=== PATIENT | male | born 1975 | race African-American/Black ===

== ENCOUNTER 2018-07-24 02:08 | Emergency (ER) | payer SELFPAY ==
[2018-07-24 02:55] LABS: Absolute Lymphocytes (CBC) 2.3 K/uL (0.7-4.9); Absolute Monocytes 0.6 K/uL (0.1-1.3); Basophils % 0.6 % (0-1.3); Eosinophils % 2.5 % (0-4.4); Lymphocytes % 45.1 % (15.3-44.8); MCH 28.9 pg (27.0-35.0); MPV 8.9 fL (7.6-11.3); Monocytes % 11.6 % (3.3-12.3); RBC Red Blood Cell Count 4.24 M/uL (4.33-5.43)
[2018-07-24] MEDS ORDERED: ONDANSETRON 4 MG/2 ML VIAL ONE (02:57)
[2018-07-24] MEDS ORDERED: NA CHLORIDE 0.9% 1,000 ML ONE (02:57)
[2018-07-24] MEDS ORDERED: KETOROLAC 30 MG/ML INJ ONE (02:57)
[2018-07-24 03:09] LABS: Albumin 3.7 g/dL (3.4-5.0); Bilirubin Direct 0.1 mg/dL (0-0.2); Bilirubin Total 0.3 mg/dL (0.2-1.0); Potassium 3.9 mmol/L (3.5-5.1); Protein, Total 7.5 g/dL (6.4-8.2)
[2018-07-24 03:21] LABS: Urine Blood TRACE (NEG); Urine Glucose NEGATIVE (NEG); Urine Protein NEGATIVE (NEG)
--- NOTE | 2018-07-24 03:56 | ER ---
Nurse's Notes [facility] Name: Kevan Lucero Jr Age: 42 yrs Sex: Male : 1975 Arrival Date: 07/24/2018 Time: 02:11 Bed 18 Private MD: Diagnosis: Low back pain;Anemia, unspecified;Unspecified kidney failure Presentation: 07/24 02:25 Presenting complaint: Patient states: I noticed my back was starting to hurt while I jb4 was watching the football game yesterday (07/23/18) and so I took 2 Tylenol 500 mg. When I woke up around 0130 I was hurting even worse when I sat up and went to go to the restroom. I took another 2 of Tylenol 500 mg. Transition of care: patient was not received from another setting of care. Onset of symptoms was July 24, 2018. Risk Assessment: Do you want to hurt yourself or someone else? Patient reports no desire to harm self or others. Initial Sepsis Screen: Does the patient meet any 2 criteria? No. Patient's initial sepsis screen is negative. Does the patient have a suspected source of infection? No. Patient's initial sepsis screen is negative. Care prior to arrival: None. 02:25 Method Of Arrival: Ambulatory jb4 02:25 Acuity: FILIBERTO 4 jb4 Triage Assessment: :28 General: Appears in no apparent distress. uncomfortable, Behavior is calm, cooperative, jb4 appropriate for age. Pain: Complains of pain in right low back Pain does not radiate. Pain currently is 10 out of 10 on a pain scale. Quality of pain is described as throbbing. EENT: No signs and/or symptoms were reported regarding the EENT system. Neuro: Level of Consciousness is awake, alert, obeys commands, Oriented to person, place, time, situation. Cardiovascular: Patient's skin is warm and dry. Respiratory: Airway is patent Respiratory effort is even, unlabored, Respiratory pattern is regular, symmetrical. GI: No signs and/or symptoms were reported involving the gastrointestinal system. : No signs and/or symptoms were reported regarding the genitourinary system. Derm: Skin is intact, Skin is pink, warm \T\ dry. Musculoskeletal: Circulation, motion, and sensation intact. Historical: - Allergies: 02:28 No Known Allergies; jb4 - Home Meds: 02:28 None [Active]; jb4 - PMHx: 02:28 None; jb4 - PSHx: 02:28 None; jb4 - Immunization history:: Adult Immunizations up to date, Flu vaccine is up to date. - Social history:: Smoking status: Patient/guardian denies using tobacco, Patient/guardian denies using alcohol. - Ebola Screening: : No symptoms or risks identified at this time. - Family history:: not pertinent. Screenin:30 Abuse screen: Denies threats or abuse. Nutritional screening: No deficits noted. jb4 Tuberculosis screening: No symptoms or risk factors identified. Fall Risk None identified. Assessment: 02:30 General: see triage assessment.. Neuro: Level of Consciousness is awake, alert, obeys jb4 commands, Oriented to person, place, time, situation. 03:00 Reassessment: Pt to CT via wheelchair. jb4 03:28 Reassessment: Patient appears in no apparent distress at this time. Patient and/or jb4 family updated on plan of care and expected duration. Pain level reassessed. Patient is alert, oriented x 3, equal unlabored respirations, skin warm/dry/pink. 04:14 Reassessment: Patient appears in no apparent distress at this time. Patient and/or jb4 family updated on plan of care and expected duration. Pain level reassessed. Patient is alert, oriented x 3, equal unlabored respirations, skin warm/dry/pink. Vital Signs: 02:28 BP 133 / 94; Pulse 67; Resp 18; Temp 98.3; Pulse Ox 98% on R/A; Weight 95.25 kg; Height jb4 6 ft. 3 in. (190.50 cm); Pain 10/10; 03:28 BP 115 / 84; Pulse 67; Resp 18; Pulse Ox 97% on R/A; jb4 04:14 BP 118 / 81; Pulse 86; Resp 18; Pulse Ox 95% on R/A; jb4 02:28 Body Mass Index 26.25 (95.25 kg, 190.50 cm) jb4 ED Course: 02:11 Patient arrived in ED. es 02:16 Martin Choudhury RN is Primary Nurse. jb4 02:26 Alen García MD is Attending Physician. [facility] 02:27 Triage completed. jb4 02:28 Arm band placed on right wrist. jb4 02:28 Patient has correct armband on for positive identification. Bed in low position. Call jb4 light in reach. Side rails up X 1. Pulse ox on. NIBP on. 02:28 Initial lab(s) drawn, by me, sent to lab. Inserted saline lock: 20 gauge in right jb4 antecubital area, using aseptic technique. Blood collected. 02:56 Radiology exam delayed due to Patient receiving pain medications at this time. kw1 03:[address] via wheelchair. kw1 03:08 CT completed. Patient tolerated procedure well. Patient moved back from CT. kw1 03:09 CT Stone Protocol In Process Unspecified. EDMS 04:14 IV discontinued, intact, bleeding controlled. jb4 04:14 No provider procedures requiring assistance completed. jb4 Administered Medications: 02:56 Drug: Zofran 4 mg Route: IVP; Site: right antecubital; jb4 03:29 Follow up: Response: No adverse reaction; Nausea is decreased jb4 02:57 Drug: NS 0.9% 1000 ml Route: IV; Rate: 1 bolus; Site: right antecubital; jb4 04:00 Follow up: Response: No adverse reaction; IV Status: Completed infusion jb4 02:59 Drug: TORadol 30 mg Route: IVP; Site: right antecubital; jb4 03:29 Follow up: Response: No adverse reaction; Pain is decreased jb4 Outcome: 03:55 Discharge ordered by . brenda 04:14 Discharged to home ambulatory. jb4 04:14 Condition: stable 04:14 Discharge instructions given to patient, Instructed on discharge instructions, follow up and referral plans. medication usage, Demonstrated understanding of instructions, follow-up care, medications, Prescriptions given X 4. 04:16 Patient left the ED. jb4 Signatures: Dispatcher [employer] Alen Briscoe MD MD cha Salyer, Edna es Bryson, James RN RN jb4 Mecca Holt kw1
--- NOTE | 2018-07-24 03:56 | EDPHYS ---
Physician Documentation [facility] Name: Kevan Lucero Jr Age: 42 yrs Sex: Male : 1975 Arrival Date: 07/24/2018 Time: 02:11 Bed 18 Private MD: ED Physician Alen García HPI: 07/24 02:42 This 42 yrs old Black Male presents to ER via Ambulatory with complaints of Back Pain. [facility] 02:42 The patient presents with pain that is acute. The symptoms are located in the lumbar brenda area, right mid back and right low back. Onset: The symptoms/episode began/occurred just prior to arrival. The pain does not radiate. Associated signs and symptoms: The patient has no apparent associated signs or symptoms. Modifying factors: The patient symptoms are alleviated by nothing, the patient symptoms are aggravated by any movement. Severity of symptoms: At their worst the symptoms were moderate, in the emergency department the symptoms are unchanged. The patient has not experienced similar symptoms in the past. Historical: - Allergies: 02:28 No Known Allergies; jb4 - Home Meds: 02:28 None [Active]; jb4 - PMHx: 02:28 None; jb4 - PSHx: 02:28 None; jb4 - Immunization history:: Adult Immunizations up to date, Flu vaccine is up to date. - Social history:: Smoking status: Patient/guardian denies using tobacco, Patient/guardian denies using alcohol. - Ebola Screening: : No symptoms or risks identified at this time. - Family history:: not pertinent. ROS: 02:42 Constitutional: Negative for fever, chills, and weight loss, Eyes: Negative for injury, brenda pain, redness, and discharge, ENT: Negative for injury, pain, and discharge, Neck: Negative for injury, pain, and swelling, Cardiovascular: Negative for chest pain, palpitations, and edema, Respiratory: Negative for shortness of breath, cough, wheezing, and pleuritic chest pain, Abdomen/GI: Negative for abdominal pain, nausea, vomiting, diarrhea, and constipation, : Negative for injury, bleeding, discharge, and swelling, MS/Extremity: Negative for injury and deformity, Skin: Negative for injury, rash, and discoloration, Neuro: Negative for headache, weakness, numbness, tingling, and seizure, Psych: Negative for depression, anxiety, suicide ideation, homicidal ideation, and hallucinations, Allergy/Immunology: Negative for hives, rash, and allergies, Endocrine: Negative for neck swelling, polydipsia, polyuria, polyphagia, and marked weight changes, Hematologic/Lymphatic: Negative for swollen nodes, abnormal bleeding, and unusual bruising. 02:42 Back: Positive for decreased range of motion, pain at rest, flank pain, on the right. Exam: 02:42 Constitutional: This is a well developed, well nourished patient who is awake, alert, brenda and in no acute distress. Head/Face: Normocephalic, atraumatic. Eyes: Pupils equal round and reactive to light, extra-ocular motions intact. Lids and lashes normal. Conjunctiva and sclera are non-icteric and not injected. Cornea within normal limits. Periorbital areas with no swelling, redness, or edema. ENT: Nares patent. No nasal discharge, no septal abnormalities noted. Tympanic membranes are normal and external auditory canals are clear. Oropharynx with no redness, swelling, or masses, exudates, or evidence of obstruction, uvula midline. Mucous membranes moist. Neck: Trachea midline, no thyromegaly or masses palpated, and no cervical lymphadenopathy. Supple, full range of motion without nuchal rigidity, or vertebral point tenderness. No Meningismus. Chest/axilla: Normal chest wall appearance and motion. Nontender with no deformity. No lesions are appreciated. Cardiovascular: Regular rate and rhythm with a normal S1 and S2. No gallops, murmurs, or rubs. Normal PMI, no JVD. No pulse deficits. Respiratory: Lungs have equal breath sounds bilaterally, clear to auscultation and percussion. No rales, rhonchi or wheezes noted. No increased work of breathing, no retractions or nasal flaring. Abdomen/GI: Soft, non-tender, with normal bowel sounds. No distension or tympany. No guarding or rebound. No evidence of tenderness throughout. Male : Normal genitalia with no discharge or lesions. Skin: Warm, dry with normal turgor. Normal color with no rashes, no lesions, and no evidence of cellulitis. MS/ Extremity: Pulses equal, no cyanosis. Neurovascular intact. Full, normal range of motion. Neuro: Awake and alert, GCS 15, oriented to person, place, time, and situation. Cranial nerves II-XII grossly intact. Motor strength 5/5 in all extremities. Sensory grossly intact. Cerebellar exam normal. Normal gait. Psych: Awake, alert, with orientation to person, place and time. Behavior, mood, and affect are within normal limits. 02:42 Back: ROM is painful, normal spinal alignment noted, CVA tenderness, that is mild, muscle spasm, is appreciated in the right mid back and right low back. Vital Signs: 02:28 BP 133 / 94; Pulse 67; Resp 18; Temp 98.3; Pulse Ox 98% on R/A; Weight 95.25 kg; Height jb4 6 ft. 3 in. (190.50 cm); Pain 10/10; 03:28 BP 115 / 84; Pulse 67; Resp 18; Pulse Ox 97% on R/A; jb4 04:14 BP 118 / 81; Pulse 86; Resp 18; Pulse Ox 95% on R/A; jb4 02:28 Body Mass Index 26.25 (95.25 kg, 190.50 cm) 4 MDM: 02:26 Patient medically screened. [facility] 02:44 Data reviewed: vital signs, nurses notes, lab test result(s), radiologic studies, CT brenda scan. 07/24 02:42 Order name: Basic Metabolic Panel; Complete Time: 03:52 [facility] 07/24 02:42 Order name: CBC with Diff; Complete Time: 03:52 [facility] 07/24 02:42 Order name: Hepatic Function; Complete Time: 03:52 [facility] 07/24 02:42 Order name: Lipase; Complete Time: 03:52 [facility] 07/24 02:30 Order name: Urine Dipstick-Ancillary (obtain specimen); Complete Time: 02:44 [facility] 07/24 02:42 Order name: IV Saline Lock; Complete Time: 02:44 [facility] 07/24 02:42 Order name: Labs collected and sent; Complete Time: 02:44 [facility] 07/24 02:42 Order name: CT Stone Protocol [facility] 07/24 02:45 Order name: Urine Dipstick--Ancillary (enter results); Complete Time: 03:52 mw2 Administered Medications: 02:56 Drug: Zofran 4 mg Route: IVP; Site: right antecubital; [facility] 03:29 Follow up: Response: No adverse reaction; Nausea is decreased [facility] 02:57 Drug: NS 0.9% 1000 ml Route: IV; Rate: 1 bolus; Site: right antecubital; jb4 04:00 Follow up: Response: No adverse reaction; IV Status: Completed infusion jb4 02:59 Drug: TORadol 30 mg Route: IVP; Site: right antecubital; jb4 03:29 Follow up: Response: No adverse reaction; Pain is decreased jb4 Disposition: 07/24/18 03:55 Discharged to Home. Impression: Low back pain, Anemia, unspecified, Unspecified kidney failure. - Condition is Stable. - Discharge Instructions: Back Pain, Adult, Musculoskeletal Pain, Back Injury Prevention, [id number], Back Pain, Adult, [id number]. - Prescriptions for Ibuprofen 600 mg Oral Tablet - take 1 tablet by ORAL route every 8 hours As needed take with food; 21 tablet. Tylenol- Codeine #3 300-30 mg Oral Tablet - take 2 tablet by ORAL route every 6 hours As needed; 30 tablet. Skelaxin 800 mg Oral Tablet - take 1 tablet by ORAL route every 6 hours As needed; 40 tablet. Medrol (Darrell) 4 mg Oral Tablets, Dose Pack - take 1 tablet by ORAL route as directed - follow package instructions; 1 packet. - Medication Reconciliation Form, Thank You Letter, Antibiotic Education, Prescription Opioid Use form. - Follow up: Private Physician; When: 2 - 3 days; Reason: Recheck today's complaints, Continuance of care, Re-evaluation by your physician. - Problem is new. - Symptoms have improved. Signatures: Dispatcher [employer] [facility] Alen García MD MD cha Bryson, James, RN RN jb4 Corrections: (The following items were deleted from the chart) 02:50 02:42 Creatinine for Radiology+C.LAB.BRZ ordered. EDOR EDMS 03:02 02:42 Urine Culture+BA.LAB.BRZ ordered. [facility] EDMS 04:16 03:55 07/24/2018 03:55 Discharged to Home. Impression: Low back pain; Anemia, jb4 unspecified; Unspecified kidney failure. Condition is Stable. Discharge Instructions: Back Pain, Adult, Musculoskeletal Pain, Back Injury Prevention, [id number]-[id number], Back Pain, Adult, Agpi-ox-Yzlu. Prescriptions for Ibuprofen 600 mg Oral Tablet - take 1 tablet by ORAL route every 8 hours As needed take with food; 21 tablet, Tylenol-Codeine #3 300-30 mg Oral Tablet - take 2 tablet by ORAL route every 6 hours As needed; 30 tablet. and Forms are Medication Reconciliation Form, Thank You Letter, Antibiotic Education, Prescription Opioid Use. Follow up: Private Physician; When: 2 - 3 days; Reason: Recheck today's complaints, Continuance of care, Re-evaluation by your physician. Problem is new. Symptoms have improved. brenda
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
== END 2018-07-24 04:16 | disposition home or self-care (01) ==
LOC: ER 02:08
DX: M54.5 Low back pain (principal); D64.9 Anemia, unspecified; N19 Unspecified kidney failure
CPT/HCPCS: 36415; 74176; 76377; 80048; 80076; 81003; 83690; 85025; 96361; 96374; 96375; 99284; J2405; J7030

== ENCOUNTER 2021-12-20 09:17 | Emergency (ER) | payer OTHER, SELFPAY ==
[2021-12-20] MEDS ORDERED: TETANUS & DIPHTHERIA TOX,ADULT 0.5 ML VIAL ONE (11:08)
[2021-12-20] MEDS ORDERED: HYDROCODONE/APAP 10/325 TAB ONE (11:08)
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
[2021-12-20 11:50] VITALS: BP 129/87; TEMP 98.3; O2SAT 99
== END 2021-12-20 11:29 | disposition home or self-care (01) ==
LOC: ER 09:17
DX: S02.2XXA Fracture of nasal bones, initial encounter for closed fracture (principal); V48.6XXA Car passenger injured in noncollision transport accident in traffic accident, initial encounter; M54.2 Cervicalgia; R07.9 Chest pain, unspecified; R10.9 Unspecified abdominal pain
CPT/HCPCS: 70450; 70486; 71250; 72125; 76377; 90471; 90714; 99284

== ENCOUNTER 2023-05-14 11:13 | Emergency (ER) | payer BC ==
--- OUTSIDE RECORDS SUMMARY | 2023-05-14 11:17 | XMS REPORT | Continuity of Care Document ---
:1975 Author Organization [facility] t Address [address] [place] [address] Care Team Providers Name Role Phone PCP, PATIENT DOES NOT HAVE A Primary Care Physician MILI Goodman Attending Clinician Unavailable Mili Aguirre Attending Clinician ELADIA REYES Attending Clinician Unavailable Eladia Reyes DO Attending Clinician Problems Condition Condition Condition Status Onset Resolution Last Treating Co mments Source Name Details Category Date Date Treatment Clinician Date Knee pain, Knee pain, Disease Active U nivers right right 4-15 ity of 00:00: [address] Allergies, Adverse Reactions, Alerts Allergy Allergy Status Severity Reaction(s) Onset Inactive Treating Comm ents Source Name Type Date Date Clinician SHRIMP DRUG Active Swelling 2021-09 Univers INGREDI 2-23 ity of 00:00: [address] Shrimp Propensi Active Swelling 2021-09 Univer s ty to 223 ity of adverse 00:00: [place] reaction [address] [place] [address] NO KNOWN Drug Active Univers ALLERGIE Class ity of S [facility] Social History Social Habit Start Date Stop Date Quantity Comments Source History of Current smoker University of tobacco use [facility] Exposure to 2022-08-31 2022-09-10 Not sure University of SARS-CoV-2 00:00:00 15:58:00 [facility] (event) [place] Alcohol intake 2022-09-10 2022-09-10 University of 00:00:00 00:00:00 [place] [facility] Sex Assigned At [birth year] Universit y of 00:00:00 00:00:00 [facility] Smoking Status Start Date Stop Date Source Ex-smoker [facility] Medications Ordered Filled Start Stop Current Ordering Indication Dosage Frequency Signature Comments Components Source Medication Medication Date Date Medication? Clinician (SIG) Name Name ondansetron 2021-09 No 4mg 4 mg, [facility] ers (ZOFRAN-ODT 2-24 12-24 Oral, ity of ) 00:30: 12:29 ONCE, 1 [place] disintegrat 00 :00 dose, On Medi charline ing tablet Fri Branch 4 mg 09/10/22 at 1830, Routine nirmatrelvi 2021-09 Yes [id number] 3{tbl} Take 3 Univers r-ritonavir 2-23 tablets by it y of (PAXLOVID, 00:00: mouth in [place] as EUA,) 300 00 the Medical mg (150 mg morning Branch x 2)-100 mg and 3 tablet tablets in the evening. ondansetron 2021-09 Yes [id number] 4mg Take 1 Univers 4 mg 2-23 tablet by ity of disintegrat 00:00: mouth [place] ing tablet 00 every 8 Medica l (eight) Branch hours as needed for Nausea and Vomiting (N/V). ondansetron 2021-09 No 4mg 4 mg, [facility] ers (ZOFRAN-ODT 1-27 11-27 Oral, ity of ) 07:00: 05:54 ONCE, 1 [place] disintegrat 00 :00 dose, On Medi charline ing tablet Sun Branch 4 mg 08/15/22 at 0100, Routine ondansetron 2021-09 Yes [id number] 4mg Take 1 Univers 4 mg 1-27 tablet by ity of disintegrat 00:00: mouth [place] ing tablet 00 every 8 Medica l (eight) Branch hours as needed for Nausea and Vomiting (N/V). ondansetron 2021-09- No [id number] 4mg Take 1 Univers 4 mg 1-27 12-23 tablet by ity of disintegrat 00:00: 00:[place] tablet [place] :00 every 8 Medica l (eight) Branch hours as needed for Nausea and Vomiting (N/V). oseltamivir 2021-09- No [id number] 75mg Take 1 Univers (TAMIFLU) 10-15 capsule by ity of 75 mg 00:00: 05:59 mouth in [place] capsule 00 :00 the Medical morning Branch and 1 capsule in the evening. Do all this for 5 days. Vital Signs Vital Name Observation Time Observation Value Comments Source Systolic blood 2022-09-10 21:59:00 130 mm[Hg] Univer sity of [facility] Diastolic blood 2022-09-10 21:59:00 85 mm[Hg] Unive rsity of [facility] Heart rate 2022-09-10 21:59:00 84 /min Universi ty of [facility] Body temperature 2022-09-10 21:59:00 36.94 Avani Univ ersity of [facility] Respiratory rate 2022-09-10 21:59:00 16 /min Univ ersity of [facility] Body height 2022-09-10 21:59:00 188 cm Universi ty of [facility] Body weight 2022-09-10 21:59:00 83.915 kg Universi ty of [facility] BMI 2022-09-10 21:59:00 23.75 kg/m2 Universi ty of [facility] Oxygen saturation in 2022-09-10 21:59:00 98 /min [facility] Arterial blood by [facility] Pulse oximetry Branch Systolic blood 2022-08-15 05:47:00 129 mm[Hg] Univer sity of [facility] Diastolic blood 2022-08-15 05:47:00 89 mm[Hg] Unive rsity of [facility] Heart rate 2022-08-15 05:47:00 63 /min Universi ty of [facility] Body temperature 2022-08-15 05:47:00 37.61 Avani Univ ersity [facility] Respiratory rate 2022-08-15 05:47:00 18 /min Univ ersity of [facility] Body height 2022-08-15 05:47:00 193 cm Universi ty of [facility] Body weight 2022-08-15 05:47:00 99.791 kg Universi ty of [facility] BMI 2022-08-15 05:47:00 26.78 kg/m2 Universi ty of [facility] Oxygen saturation in 2022-08-15 05:47:00 97 /min University of Arterial blood by [facility] Pulse oximetry Branch Procedures Procedure Date / Time Performed Performing Clinician Sourc e RAPID INFLUENZA A/B 2022-09-10 22:06:00 Josh Duke [facility] of [facility] COVID-19 (ID NOW 2022-09-10 22:06:00 Josh Duke [facility] RAPID TESTING) [facility] CONSENT/REFUSAL FOR 2022-09-10 21:50:25 [facility] Branch TREATMENT RAPID INFLUENZA A/B 2022-08-15 05:54:00 Eladia Reyes [facility] NOTICE OF PRIVACY 2022-08-15 05:40:16 Doctor Unassigned, No Univ [facility] PRACTICES Name [facility] Encounters Start End Encounter Admission Attending Care Care Encounter Source Date/Time Date/Time Type Type Clinicians Facility Department ID 2022-09-10 2022-09-10 Emergency X PRITESH IAMARQUISE ERT [id number] Univers 16:01:00 17:30:00 MILI boogie [facility] 2022-09-10 2022-09-10 Emergency Pritesh [facility] [id number] Univers 16:01:00 17:30:00 Mili SMALLS [id number] i [facility] [id number] [facility] [id number] [place] [address] Branch 2022-08-14 2022-08-15 Emergency X ERIC IAMARQUISE ERT [id number] Univers 23:51:00 01:14:00 ELADIA boogie [facility] 2022-08-14 2022-08-15 Emergency Eric IAMARQUISE [id number] Univers 23:51:00 01:14:00 Eladia SMALLS [id number] ity [facility] [id number] [facility] [id number] [place] [address] Branch Results This patient has no known results.
[2023-05-14] MEDS ORDERED: KETOROLAC 30 MG/ML INJ ONE (11:52)
[2023-05-14] MEDS ORDERED: NA CHLORIDE 0.9% 1,000 ML ONE (11:52)
[2023-05-14 12:08] LABS: Absolute Lymphocytes (CBC) 1.8 K/uL (0.7-4.9); Hematocrit 39.6 % (39.6-49.0); Lymphocytes % 17.7 % (15.3-44.8); MCV 85.4 fL (80-100); MPV 8.2 fL (7.6-11.3); Platelets 176 thou/uL (152-406); RBC Red Blood Cell Count 4.64 M/uL (4.33-5.43)
[2023-05-14 12:26] LABS: Albumin 3.6 g/dL (3.4-5.0); Bilirubin Total 0.7 mg/dL (0.2-1.0); Potassium 3.9 mEq/L (3.5-5.1); Protein, Total 8.1 g/dL (6.4-8.2)
--- NOTE | 2023-05-14 13:13 | RAD REPORT ---
EXAM DESCRIPTION: [facility] Protocol - 05/14/2023 1:03 pm CLINICAL HISTORY: left testicle/lower abdomen pain COMPARISON: [facility] Protocol dated 07/24/2018; Abdomen Pelvis W Contrast dated 03/30/2016 TECHNIQUE: CT of the abdomen and pelvis was performed. All CT scans are performed using dose optimization technique as appropriate and may include automated exposure control or mA/KV adjustment according to patient size. FINDINGS: Lower chest: No acute abnormality. Liver: No acute abnormality or suspicious lesions. Biliary: No biliary ductal dilatation. Stomach: No significant focal abnormality. Duodenum: No significant focal abnormality. Pancreas: No significant abnormality. Spleen: No significant abnormality. Adrenal: No suspicious lesions. Kidney/ureter: No hydronephrosis. No renal calculi. Retroperitoneum: No retroperitoneal adenopathy. Vascular: No aneurysm. Bowel: No significant focal abnormality. Normal appendix . Peritoneum: No ascites or free air. Small fat containing umbilical hernia. Bladder: The bladder is decompressed. Reproductive: No adnexal masses. Bones: No acute fracture. Sclerotic focus in the left iliac bone is unchanged since 07/24/2018 and lanie boykin a bone [place] . . Other: n/a IMPRESSION: No acute intra-abdominal or pelvic finding. No urinary tract calculi. Normal appendix.
--- NOTE | 2023-05-14 13:24 | RAD REPORT ---
EXAM DESCRIPTION: US - Scrotum Testicles - 05/14/2023 1:04 pm CLINICAL HISTORY: left testicle pain COMPARISON: Stone Protocol dated 05/14/2023 FINDINGS: The right testicle 4.7 x 2.3 x 2.8 cm with volume of 15.6 cc. No intratesticular masses or evidence of testicular torsion. The left testicle 3.4 x 2.4 x 2.8 cm with volume of 11.8 cc. No intratesticular masses or evidence of testicular torsion. Both epididymides are normal in size and appearance. No pathologic fluid collections. Echogenic and mildly hypervascular fat in the left scrotum. IMPRESSION: Bilateral testicular blood flow. Echogenic, mildly hypervascular fat in the left hemiscrotum may be due to a underlying inflammation. No hernia identified on the same-day CT.
[2023-05-14 14:20] LABS: Specific Gravity 1.015 (1.005-1.030); Urine Bacteria None Seen /HPF (<20); Urine Bilirubin NEGATIVE (Negative); Urine Blood 3+ (Negative); Urine Clarity Turbid (Clear); Urine Color Light-Yellow (Yellow); Urine Glucose NEGATIVE (Negative); Urine Mucus Slight /HPF (None Seen); Urine Protein NEGATIVE (Negative); Urine Urobilinogen 1+ (Normal); Urine pH 6.5 (5.0-7.0)
--- NOTE | 2023-05-14 14:37 | EDPHYS ---
Physician Documentation [facility] Name: Kvean Lucero Jr Age: 47 yrs Sex: Male : 1975 Arrival Date: 05/14/2023 Time: 11:13 Bed 4 Private MD: ED Physician Alen García HPI: 05/14 11:45 This 47 yrs old Black Male presents to ER via Ambulatory with complaints of Urinary cp Problem. 11:45 The patient presents with scrotal pain, of the left side, urinary symptoms, hematuria. cp Onset: The symptoms/episode began/occurred yesterday. Modifying factors: the symptoms are aggravated by walking. Associated signs and symptoms: Pertinent positives: abdominal pain, Pertinent negatives: fever. Severity of symptoms: in the emergency department the symptoms have improved, mildly. Historical: - Allergies: 11: shrimp; ll1 - PMHx: : None; ll1 - PSHx: 11:28 None; ll1 - Immunization history:: Adult Immunizations up to date. - Social history:: Smoking status: Reported history of juuling and/or vaping. ROS: 11:50 Constitutional: Negative for body aches, chills, fever, poor PO intake. cp 11:50 Eyes: Negative for injury, pain, redness, and discharge. cp 11:50 Respiratory: Negative for cough, shortness of breath, wheezing. 11:50 Abdomen/GI: Positive for abdominal pain, of the left lower abdomen, Negative for vomiting, diarrhea, constipation. 11:50 Back: Negative for radiated pain. 11:50 : Positive for urinary frequency, hematuria, testicular pain Negative for flank pain, penile discharge. 11:50 Skin: Negative for rash. 11:50 Neuro: Negative for altered mental status, dizziness, headache, weakness. 11:50 All other systems are negative. Exam: 11:55 Constitutional: The patient appears in no acute distress, alert, awake, non-toxic, well cp developed, well nourished. 11:55 Head/Face: Normocephalic, atraumatic. cp 11:55 Eyes: Periorbital structures: appear normal, Conjunctiva: normal, no exudate, no injection, Sclera: no appreciated abnormality, Lids and lashes: appear normal, bilaterally. 11:55 ENT: External ear(s): are unremarkable, Nose: is normal, Mouth: Lips: moist, Oral mucosa: pink and intact, moist, Posterior pharynx: is normal, airway is patent, no erythema, no exudate. 11:55 Chest/axilla: Inspection: normal. 11:55 Cardiovascular: Rate: normal. 11:55 Respiratory: the patient does not display signs of respiratory distress, Respirations: normal, no use of accessory muscles, no retractions, labored breathing, is not present, Breath sounds: are clear throughout, no decreased breath sounds, no stridor, no wheezing. 11:55 Abdomen/GI: Inspection: abdomen appears normal, Bowel sounds: active, all quadrants, Palpation: soft, in all quadrants, mild abdominal tenderness, in the left adnexa, rebound tenderness, is not appreciated, involuntary guarding, is not appreciated. 11:55 Back: pain, is absent, ROM is normal. 11:55 Skin: cellulitis, is not appreciated, no rash present. Vital Signs: 11:29 BP 124 / 91; Pulse 83; Resp 16; Temp 99.6; Pulse Ox 99% on R/A; Weight 90.72 kg; Height ll1 6 ft. 3 in. ; Pain 7/10; 12:22 BP 119 / 86; Pulse 55; Resp 18; Pulse Ox 98% on R/A; ld1 13:26 Pulse 63; Resp 18; Pulse Ox 100% on R/A; ld1 11:29 Body Mass Index 25.00 (90.72 kg, 190.5 cm) ll1 11:29 Pain Scale: Adult ll1 MDM: 11:22 Patient medically screened. cp 12:00 Differential diagnosis: UTI, urinary retention, prostatitis, urethritis, sexual cp transmitted disease, epididymitis. 14:35 Data reviewed: vital signs, nurses notes, lab test result(s), radiologic studies, CT cp scan, ultrasound. 14:35 I considered the following discharge prescriptions or medication management in the emergency department Medications were administered in the Emergency Department. See MAR. 14:35 Response to treatment: the patient's symptoms have markedly improved after treatment, and as a result, I will discharge patient. 05/14 11:37 Order name: CBC with Diff; Complete Time: 12:30 cp 05/14 12:30 Interpretation: Normal except: HGB 13.3. cp 05/14 11:37 Order name: CMP; Complete Time: 12:30 cp 05/14 12:31 Interpretation: Normal except: GFR 79. cp 05/14 11:37 Order name: Lipase; Complete Time: 12:30 cp 05/14 11:37 Order name: Urinalysis w/ reflexes; Complete Time: 14:32 cp 05/14 11:37 Order name: GC (Evin/Chl) Probe URINE cp 05/14 14:23 Order name: Urine Culture EDMS 05/14 11:37 Order name: US Scrotum Testicles; Complete Time: 13:26 cp 05/14 12:31 Order name: CT Stone Protocol; Complete Time: 13:26 cp 05/14 11:37 Order name: IV Saline Lock; Complete Time: 11:51 cp 05/14 11:37 Order name: Labs collected and sent; Complete Time: 11:51 cp Administered Medications: 11:51 Drug: NS 0.9% IV 1000 ml Route: IV; Rate: 1 bolus; Site: left antecubital; hb 11:51 Drug: TORadol - Ketorolac IVP 15 mg Route: IVP; Site: left antecubital; hb 14:42 Drug: Rocephin IV 1 grams Route: IV; Rate: calculated rate; Site: left antecubital; ld1 14:42 Drug: AZITHromycin PO 1 grams Route: PO; ld1 Disposition Summary: 05/14/23 14:36 Discharge Ordered Location: Home cp Problem: new cp Symptoms: have improved cp Condition: Stable cp Diagnosis - Left testicular pain cp - Lower abdominal pain, unspecified cp Followup: cp - With: Jesus Melendez MD - When: 2 - 3 days - Reason: Worsening of condition Discharge Instructions: - Discharge Summary Sheet cp - Abdominal Pain, Adult cp - Testicular Self-Exam cp Forms: - Medication Reconciliation Form cp - Thank You Letter cp - Antibiotic Education cp - Prescription Opioid Use cp - Patient Portal Instructions cp - Leadership Thank You Letter cp Prescriptions: - Ibuprofen 800 mg Oral Tablet - take 1 tablet by ORAL route every 8 hours As needed take with food; 30 tablet; cp Refills: 0, Product Selection Permitted - Doxycycline Hyclate 100 mg Oral Tablet - take 1 tablet by ORAL route every 12 hours; 20 tablet; Refills: 0, Product cp Selection Permitted Signatures: Dispatcher [facility] Page, Alen, PA Veronica Santiago cp, RN RN Isha Toth RN RN ll1 Latisha Ramirez RN RN ld1 Corrections: (The following items were deleted from the chart) 11 11:20 Allergies: No Known Allergies; [place] [id number] 05/15 14:34 14:31 Constitutional: The patient appears in no acute distress, alert, awake, cp cp
--- NOTE | 2023-05-14 14:37 | ER ---
Nurse's Notes [facility] Name: Kevan Lucero Jr Age: 47 yrs Sex: Male : 1975 Arrival Date: 05/14/2023 Time: 11:13 Bed 4 Private MD: Diagnosis: Left testicular pain;Lower abdominal pain, unspecified Presentation: 05/14 11:29 Chief complaint: Patient states: L groin area pain started yesterday. Urinated blood ll1 today so they sent him home from work. Coronavirus screen: Vaccine status: Patient reports being unvaccinated. Client denies travel out of the [place] in the last 14 days. At this time, the client does not indicate any symptoms associated with coronavirus-19. Ebola Screen: Patient denies travel to an Ebola-affected area in the 21 days before illness onset. Initial Sepsis Screen: Does the patient meet any 2 criteria? No. Patient's initial sepsis screen is negative. Does the patient have a suspected source of infection? Yes: Dysuria/Frequency/Urgency/UTI. Risk Assessment: Do you want to hurt yourself or someone else? Patient reports no desire to harm self or others. Onset of symptoms was May 13, 2023. 11:29 Method Of Arrival: Ambulatory ll1 11:29 Acuity: FILIBERTO 3 ll1 Historical: - Allergies: 11:28 shrimp; ll1 - PMHx: 11:28 None; ll1 - PSHx: 11:28 None; ll1 - Immunization history:: Adult Immunizations up to date. - Social history:: Smoking status: Reported history of juuling and/or vaping. Screenin:[facility] ED Fall Risk Assessment (Adult) Score/Fall Risk Level 0 - 2 = Low Risk hb Oriented to surroundings, Maintained a safe environment. Abuse screen: Denies threats or abuse. Denies injuries from another. Nutritional screening: No deficits noted. Tuberculosis screening: No symptoms or risk factors identified. Assessment: 11:52 General: Appears in no apparent distress. Behavior is calm, cooperative. Pain: Pain hb currently is 7 out of 10 on a pain scale. Neuro: Level of Consciousness is awake, alert, obeys commands, Oriented to person, place, time, situation. Cardiovascular: Patient's skin is warm and dry. Respiratory: Respiratory effort is even, unlabored, Respiratory pattern is regular, symmetrical. GI: Reports lower abdominal pain. : Reports blood in urine. EENT: No signs and/or symptoms were reported regarding the EENT system. Derm: Skin is pink, warm \T\ dry. Musculoskeletal: No signs and/or symptoms reported regarding the musculoskeletal system. 14:03 Reassessment: Patient appears in no apparent distress at this time. Patient and/or hb family updated on plan of care and expected duration. Pain level reassessed. Patient is alert, oriented x 3, equal unlabored respirations, skin warm/dry/pink. Vital Signs: 11:29 BP 124 / 91; Pulse 83; Resp 16; Temp 99.6; Pulse Ox 99% on R/A; Weight 90.72 kg; Height ll1 6 ft. 3 in. ; Pain 7/10; 12:22 BP 119 / 86; Pulse 55; Resp 18; Pulse Ox 98% on R/A; ld1 13:26 Pulse 63; Resp 18; Pulse Ox 100% on R/A; ld1 11:29 Body Mass Index 25.00 (90.72 kg, 190.5 cm) ll1 11:29 Pain Scale: Adult ll1 ED Course: 11:17 Patient arrived in ED. mr 11:20 Arm band placed on. ll1 11:21 Alen Zambrano PA is PHCP. cp 11:21 Alen García MD is Attending Physician. cp 11:30 Triage completed. ll1 11:50 Inserted saline lock: 20 gauge antecubital area, using aseptic technique. Blood hb collected. 11:51 CBC with Diff Sent. hb 11:51 CMP Sent. hb 11:51 Lipase Sent. hb 11:51 Urinalysis w/ reflexes Sent. hb 11:52 Patient has correct armband on for positive identification. Provided Education on: . hb 13:05 US Scrotum Testicles In Process Unspecified. EDMS 13:05 CT Stone Protocol In Process Unspecified. EDMS 14:03 Veronica Cason, RN is Primary Nurse. hb 14:35 Jesus Melendez MD is Referral Physician. cp 14:42 No provider procedures requiring assistance completed. IV discontinued, intact, ld1 bleeding controlled, No redness/swelling at site. Administered Medications: 11:51 Drug: NS 0.9% IV 1000 ml Route: IV; Rate: 1 bolus; Site: left antecubital; hb 11:51 Drug: TORadol - Ketorolac IVP 15 mg Route: IVP; Site: left antecubital; hb 14:42 Drug: Rocephin IV 1 grams Route: IV; Rate: calculated rate; Site: left antecubital; ld1 14:42 Drug: AZITHromycin PO 1 grams Route: PO; ld1 Medication: 11:52 VIS not applicable for this client. hb Outcome: 14:36 Discharge ordered by MD. cp 14:42 Discharged to home ambulatory. ld1 14:42 Condition: stable 14:42 Discharge instructions given to patient, Instructed on discharge instructions, follow up and referral plans. medication usage, Demonstrated understanding of instructions, follow-up care, medications, Prescriptions given X 2. 14:43 Patient left the ED. ld1 Signatures: Dispatcher [employer] [facility] MeekPrecious Corey, PA PA cp Baxter, Heather, RN RN Isha Toth RN RN ll1 Latisha Ramirez RN RN ld1 Corrections: (The following items were deleted from the chart) 11:29 11:20 Allergies: No Known Allergies; ll1 ll1
[2023-05-14] MEDS ORDERED: AZITHROMYCIN 250 MG TAB ONE (14:46)
[2023-05-14] MEDS ORDERED: CEFTRIAXONE 1000 MG/VIAL ONE (14:46)
[2023-05-14 14:52] VITALS: BP 124/91; TEMP 99.6
[2023-05-14 14:54] VITALS: O2SAT 100
== END 2023-05-14 14:43 | disposition home or self-care (01) ==
LOC: ER 11:13
DX: R10.32 Left lower quadrant pain (principal); N50.812 Left testicular pain; Z91.013 Allergy to seafood
CPT/HCPCS: 87088; 85025; 81001; 87086; 36415; 83690; 80053; 87590; 87490; 76377; 74176; 76870; 96375; 96374; 99284; J7030; J0696

== ENCOUNTER 2023-07-29 18:46 | Emergency (ER) | payer BC, OTHER ==
--- OUTSIDE RECORDS SUMMARY | 2023-07-29 18:49 | XMS REPORT | Continuity of Care Document ---
:1975 Author Organization [facility] t Address [address] [place] [address] Care Team Providers Name Role Phone PCP, PATIENT DOES NOT HAVE A Primary Care Physician Hodaa MILI Dejesus Attending Clinician Unavailable Mili Aguirre Attending Clinician ELADIA REYES Attending Clinician Unavailable Eladia Reyes DO Attending Clinician Problems Condition Condition Condition Status Onset Resolution Last Treating Co mments Source Name Details Category Date Date Treatment Clinician Date Knee pain, Knee pain, Disease Active U nivers right right 4-15 ity of 00:00: [address] Allergies, Adverse Reactions, Alerts Allergy Allergy Status Severity Reaction(s) Onset Inactive Treating Comm ents Source Name Type Date Date Clinician SHRIMP DRUG Active Swelling 2021-09 Univers INGREDI 2-23 ity of 00:00: [address] Shrimp Propensi Active Swelling 2021-09 Univer s ty to 223 ity of adverse 00:00: [place] reaction [address] [place] [address] NO KNOWN Drug Active Univers ALLERGIE Class ity of S [facility] Social History Social Habit Start Date Stop Date Quantity Comments Source History of Current smoker University of tobacco use [facility] Exposure to 2022-08-31 2022-09-10 Not sure University of SARS-CoV-2 00:00:00 15:58:00 [facility] (event) [place] Alcohol intake 2022-09-10 2022-09-10 University of 00:00:00 00:00:00 [facility] Sex Assigned At [birth year] [facility] [place] [facility] 00:[facility]:00 00:00:00 [facility] Smoking Status Start Date Stop Date Source Ex-smoker [facility] Medications Ordered Filled Start Stop Current Ordering Indication Dosage Frequency Signature Comments Components Source Medication Medication Date Date Medication? Clinician (SIG) Name Name ondansetron 2021-09 No 4mg 4 mg, [facility] ers (ZOFRAN-ODT 2-24 12-24 Oral, ity of ) 00:30: 12:29 ONCE, 1 [place] disintegrat 00 :00 dose, On Medi charline ing tablet Fri Branch 4 mg 09/10/22 at 1830, Routine nirmatrelvi 2021-09 Yes [id number] 3{tbl} Take 3 Univers r-ritonavir 2-23 tablets by it y of (PAXLOVID, 00:00: mouth in [place] as EUA,) 300 00 the Medical mg (150 mg morning Branch x 2)-100 mg and 3 tablet tablets in the evening. ondansetron 2021-09 Yes [id number] 4mg Take 1 Univers 4 mg 2-23 tablet by ity of disintegrat 00:00: mouth [place] ing tablet 00 every 8 Medica l (eight) Branch hours as needed for Nausea and Vomiting (N/V). ondansetron 2021-09 No 4mg 4 mg, [facility] ers (ZOFRAN-ODT 1-27 11-27 Oral, ity of ) 07:00: 05:54 ONCE, 1 [place] disintegrat 00 :00 dose, On Medi charline ing tablet Sun Branch 4 mg 08/15/22 at 0100, Routine ondansetron 2021-09 Yes [id number] 4mg Take 1 Univers 4 mg 1-27 tablet by ity of disintegrat 00:00: mouth [place] ing tablet 00 every 8 Medica l (eight) Branch hours as needed for Nausea and Vomiting (N/V). ondansetron 2021-09- No [id number] 4mg Take 1 Univers 4 mg 1-27 12-23 tablet by ity of disintegrat 00:00: 00:[place] tablet 00 :00 every 8 Medica l (eight) Branch hours as needed for Nausea and Vomiting (N/V). oseltamivir 2021-09- No [id number] 75mg Take 1 Univers (TAMIFLU) 10-15 capsule by ity of 75 mg 00:00: 05:59 mouth in [place] capsule 00 :00 the Medical morning Branch and 1 capsule in the evening. Do all this for 5 days. Vital Signs Vital Name Observation Time Observation Value Comments Source Systolic blood 2022-09-10 21:59:00 130 mm[Hg] Univer sity of [facility] Diastolic blood 2022-09-10 21:59:00 85 mm[Hg] Unive rsity of pressure [facility] Heart rate 2022-09-10 21:59:00 84 /min Universi ty of [facility] Body temperature 2022-09-10 21:59:00 36.94 Avani Univ ersity of [facility] Respiratory rate 2022-09-10 21:59:00 16 /min Univ ersity of [facility] Body height 2022-09-10 21:59:00 188 cm Universi ty of [facility] Body weight 2022-09-10 21:59:00 83.915 kg Universi ty of [facility] BMI 2022-09-10 21:59:00 23.75 kg/m2 Universi ty of [facility] Oxygen saturation in 2022-09-10 21:59:00 98 /min [facility] Arterial blood by [facility] Pulse oximetry Branch Systolic blood 2022-08-15 05:47:00 129 mm[Hg] Univer sity of [facility] Diastolic blood 2022-08-15 05:47:00 89 mm[Hg] Unive rsity of [facility] Heart rate 2022-08-15 05:47:00 63 /min Universi ty of [facility] Body temperature 2022-08-15 05:47:00 37.61 Avani Univ ersity [facility] Respiratory rate 2022-08-15 05:47:00 18 /min Univ ersity of [facility] Body height 2022-08-15 05:47:00 193 cm Universi ty of [facility] Body weight 2022-08-15 05:47:00 99.791 kg Universi ty of [facility] BMI 2022-08-15 05:47:00 26.78 kg/m2 Universi ty of [facility] Oxygen saturation in 2022-08-15 05:47:00 97 /min University of Arterial blood by [facility] Pulse oximetry Branch Procedures Procedure Date / Time Performed Performing Clinician Sourc e RAPID INFLUENZA A/B 2022-09-10 22:06:00 Josh [facility] of [facility] COVID-19 (ID NOW 2022-09-10 22:06:[address] [facility] RAPID TESTING) [facility] CONSENT/REFUSAL FOR 2022-09-10 21:50:25 [facility], [facility] TREATMENT RAPID INFLUENZA A/B 2022-08-15 05:54:00 Eladia Reyes [facility] NOTICE OF PRIVACY 2022-08-15 05:40:16 Doctor Unassigned, No Univ [facility] PRACTICES Name [facility] Encounters Start End Encounter Admission Attending Care Care Encounter Source Date/Time Date/Time Type Type Clinicians Facility Department ID 2022-09-10 2022-09-10 Emergency X PRITESH NHMARQUISE ERT [id number] Univers 16:01:00 17:30:00 MILI boogie [facility] 2022-09-10 2022-09-[address] [facility] [id number] Univers 16:01:00 17:30:00 Mili SMALLS [id number] i [facility] [id number] [place] [address] [id number] [place] [address] Branch 2022-08-14 2022-08-15 Emergency X ERIC NHMARQUISE ERT [id number] Univers 23:51:00 01:14:00 ELADIA boogie [facility] 2022-08-14 2022-08-15 Emergency Eric NHMARQUISE [id number] Univers 23:51:00 01:14:00 [id number] [id number] [place] [address] Branch Results This patient has no known results.
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
[2023-07-29] MEDS ORDERED: IBUPROFEN 400 MG TAB ONE (20:38)
[2023-07-29 20:45] VITALS: TEMP 97
[2023-07-29 20:46] VITALS: BP 112/78; O2SAT 98
== END 2023-07-29 20:41 | disposition home or self-care (01) ==
LOC: ER 18:46
DX: S16.1XXA Strain of muscle, fascia and tendon at neck level, initial encounter (principal); M54.12 Radiculopathy, cervical region; V49.49XA Driver injured in collision with other motor vehicles in traffic accident, initial encounter; Z91.013 Allergy to seafood
CPT/HCPCS: 72040; 99283

== ENCOUNTER 2024-02-10 14:12 | Emergency (ER) | payer SELFPAY, OTHER ==
[2024-02-10] MEDS ORDERED: KETOROLAC 30 MG/ML INJ ONE (14:48)
[2024-02-10] MEDS ORDERED: ONDANSETRON 4 MG/2 ML VIAL ONE (14:48)
[2024-02-10] MEDS ORDERED: NA CHLORIDE 0.9% 1,000 ML ONE (14:48)
[2024-02-10] MEDS ORDERED: FENTANYL CITR 100 MCG/2 ML ONE (14:48)
[2024-02-10 15:04] LABS: Absolute Eosinophils 0.1 K/uL (0-0.5); Absolute Lymphocytes (CBC) 1.5 K/uL (0.7-4.9); Absolute Monocytes 0.7 K/uL (0.1-1.3); Absolute Neutrophil 2.3 K/uL (1.8-8.0); Basophils % 0.4 % (0-1.3); Eosinophils % 1.8 % (0-4.4); Hematocrit 38.6 % (39.6-49.0); Hemoglobin 12.2 g/dL (13.6-17.9); Lymphocytes % 32.8 % (15.3-44.8); MCH 27.4 pg (27.0-35.0); MCHC 31.6 g/dL (32.0-36.0); MPV 8.9 fL (7.6-11.3); Monocytes % 15.6 % (3.3-12.3); Neutrophils % 49.4 % (41.7-73.7); Nucleated Red Blood Cells % 0.2 % (0-0); Platelets 167 thou/uL (152-406); RBC Red Blood Cell Count 4.44 M/uL (4.33-5.43)
[2024-02-10 15:17] LABS: ALT/SGPT 27 U/L (16-61); AST/SGOT 16 U/L (15-37); Albumin 3.2 g/dL (3.4-5.0); Albumin/Globulin Ratio 0.8 (1.1-1.8); Alkaline Phosphatase 64 U/L (45-117); Anion Gap 6.7 mEq/L (5.0-15.0); BUN Blood Urea Nitrogen 17 mg/dL (7-18); Bicarbonate 27 mEq/L (21-32); Bilirubin Total 0.4 mg/dL (0.2-1.0); Globulin 4.2 g/dL (2.3-3.5); Glomerular Filtration Rate 99 ml/min (=/>90); Glucose Level 97 mg/dL (74-106); Lipase 24 U/L (13-75); Potassium 3.7 mEq/L (3.5-5.1); Protein, Total 7.4 g/dL (6.4-8.2); Sodium Level 136 mEq/L (136-145)
[2024-02-10 15:18] LABS: Bilirubin Direct < 0.2 mg/dL (0-0.2); Bilirubin Indirect, Calculated 0.2 mg/dL (0.2-0.8)
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
--- NOTE | 2024-02-10 16:24 | RAD REPORT ---
EXAM DESCRIPTION: RAD - Humerus Left - 02/10/2024 3:19 pm CLINICAL HISTORY: Left arm pain FINDINGS: No fracture is seen
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
[2024-02-10 16:59] LABS: Sqamous Epithelial <5 /HPF (None Seen); Urine Bacteria None Seen /HPF (<20); Urine Bilirubin NEGATIVE (Negative); Urine Blood Negative (Negative); Urine Clarity Clear (Clear); Urine Color Light-Yellow (Yellow); Urine Culture Reflex Order REFLEXED; Urine Glucose NEGATIVE (Negative); Urine Ketones NEGATIVE (Negative); Urine Microscopic Reflex YN ORDER UMIC; Urine Mucus Slight /HPF (None Seen); Urine Nitrite NEGATIVE (Negative); Urine Protein NEGATIVE (Negative); Urine Urobilinogen Normal (Normal); Urine pH 6.5 (5.0-7.0)
[2024-02-10 17:01] LABS: Specific Gravity > 1.030 (1.005-1.030)
[2024-02-10 18:25] VITALS: BP 103/79; O2SAT 100
--- NOTE | 2024-02-14 14:27 | EKG ---
Test Date: 2024-02-10 Test Time: 17:50:13 Cable Rigger: KYLE MEASUREMENT RESULTS: Intervals: Rate: 63 RI: 208 QRSD: 82 QT: 376 QTc: 384 [place]: P: 48 RI: 208 QRS: 32 T: 47 INTERPRETIVE STATEMENTS: Normal sinus rhythm Normal ECG Compared to ECG 07/07/1997 05:20:00 Left ventricular hypertrophy no longer present Second-degree AV block, Mobitz type I (Wenckebach) no longer present Electronically Signed On 02-14-24 14:15:25 CDT by Kaleb De Anda
== END 2024-02-10 18:09 | disposition home or self-care (01) ==
LOC: ER 14:12
DX: S16.1XXA Strain of muscle, fascia and tendon at neck level, initial encounter (principal); S29.011A Strain of muscle and tendon of front wall of thorax, initial encounter; S29.012A Strain of muscle and tendon of back wall of thorax, initial encounter; S40.812A Abrasion of left upper arm, initial encounter; S50.12XA Contusion of left forearm, initial encounter; S50.02XA Contusion of left elbow, initial encounter; R07.9 Chest pain, unspecified; V49.49XA Driver injured in collision with other motor vehicles in traffic accident, initial encounter
CPT/HCPCS: 36415; 70450; 71260; 72125; 74177; 80048; 80076; 81001; 83690; 85025; 86850; 86900; 86901; 87086; 87088; 93005; 96361; 96374; 96375; 99285; J2405; J3010; J7030; Q9967

== ENCOUNTER 2024-09-27 22:43 | Emergency (ER) | payer SELFPAY, OTHER ==
[2024-09-27] MEDS ORDERED: methocarbamoL 500 MG TAB ONE (23:04)
[2024-09-27] MEDS ORDERED: PROMETHAZINE 25 MG TABLET ONE (23:04)
[2024-09-27] MEDS ORDERED: KETOROLAC 30 MG/ML INJ ONE (23:05)
[2024-09-28] MEDS ORDERED: TRAMADOL HCL 50 MG TAB ONE (00:18)
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
[2024-09-28 01:48] VITALS: TEMP 98.1
[2024-09-28 01:49] VITALS: O2SAT 100
[2024-09-28 01:51] VITALS: BP 138/86
--- NOTE | 2024-09-28 06:45 | RAD REPORT ---
EXAM: XR Left Knee, 3 Views CLINICAL HISTORY: left knee pain TECHNIQUE: Three views of the left knee. COMPARISON: No relevant prior studies available. FINDINGS: Bones/joints: Mild tricompartmental degenerative changes. No acute fracture. No significant joint e ffusion. No dislocation. Soft tissues: Unremarkable. IMPRESSION: Mild tricompartmental osteoarthrosis. Electronically signed by: Kira Steward MD 09/27/2024 11:24 PM [facility] Due to temporary technical issues with the PACS/[facility] reporting system, reports are being fantasma d by the in-house radiologist without review as a courtesy to ensure prompt reporting the interpreting radiologist is fully responsible for the content of the report. Transcribed Date/Time: 09/28/2024 6:44 AM
== END 2024-09-28 01:43 | disposition home or self-care (01) ==
LOC: ER 22:43
DX: S83.92XA Sprain of unspecified site of left knee, initial encounter (principal); S13.4XXA Sprain of ligaments of cervical spine, initial encounter; S73.101A Unspecified sprain of right hip, initial encounter; M17.12 Unilateral primary osteoarthritis, left knee; M50.30 Other cervical disc degeneration, unspecified cervical region; V49.49XA Driver injured in collision with other motor vehicles in traffic accident, initial encounter
CPT/HCPCS: 70450; 71250; 72125; 74176; 96372; 99285; Q0169